=== PATIENT | female | born 2000 | race Hispanic/Latino ===

== ENCOUNTER → 2024-06-28 | Outpatient (CLI) | payer OTHER | LOC: M EKG 10:19 | PROVIDERS: ATTEND Student in an Organized Health Care Education/Training Program | DX: O26.892 Other specified pregnancy related conditions, second trimester (principal); R00.0 Tachycardia, unspecified; Z3A.24 24 weeks gestation of pregnancy; R94.31 Abnormal electrocardiogram [ECG] [EKG] ==